=== PATIENT | female | born 1980 | race Caucasian/White ===

== ENCOUNTER 2018-04-07 20:04 | Emergency (ER) | payer OTHER ==
[~2018-04-07] VITALS: Ht 172.7 cm; Wt 71.7 kg
[~2018-04-07 20:04] MED LIST: ADVIL200 MG PO; CIPRO500 MG PO; FLEXERIL10 MG PO; LORAZEPAM1 MG PO; LORTAB 5-325 M1 EACH PO; NAPROSYN500 MG PO; NOHOMEMEDS; OLMESARTAN-HCT1 EACH PO; VITAMIN B122500 MCG PO
[2018-04-07] MEDS ORDERED: AUGMENTIN875 MG PO (20:54)
[2018-04-07 21:15] LABS: BASOPHIL (%) 0.3 % (0-1); EOSINOPHIL (%) 1.2 % (0-5); EOSINOPHIL COUNT 0.1 K/uL (0-0.3); HEMATOCRIT 42.9 % (36.0-46.0); HEMOGLOBIN 14.5 G/DL (11.9-15.5); IMMATURE GRANULOCYTE (%) 0.3 % (0.0-0.7); LYMPHOCYTE COUNT 2.2 K/uL (1.0-2.8); MCH 32.2 PG (29.0-34.0); MCHC 33.8 G/DL (30.0-36.0); MCV 95.1 FL (83-99); MONOCYTE (%) 6.7 % (3-12); MONOCYTE COUNT 0.8 K/uL (0-0.8); NEUTROPHIL (%) 72.5 % (45-76); NEUTROPHIL COUNT 8.4 K/uL (1.8-6.4); PLATELET COUNT 187 K/uL (156-360); RBC DIS.WIDTH-CV 13.1 % (11.8-14.6); RBC DIS.WIDTH-SD 45.9 % (39-53); RED BLOOD COUNT 4.51 M/uL (3.80-5.20); WHITE BLOOD COUNT 11.6 K/uL (4.1-10.2)
[2018-04-07 21:28] LABS: ALBUMIN 4.3 g/dL (3.2-4.8); CHLORIDE 105 mEq/L (99-109); POTASSIUM 3.4 mEq/L (3.7-5.4); SODIUM 137 mEq/L (136-147)
[2018-04-07 21:31] LABS: GLUCOSE 84 mg/dL (70-99); TOTAL PROTEIN 7.7 g/dL (6.4-8.3)
[2018-04-07 21:33] LABS: TOTAL BILIRUBIN 0.9 mg/dL (0.0-1.0)
[2018-04-07 21:34] LABS: ALKALINE PHOSPHATASE 51 IU/L (3-129)
[2018-04-07 21:35] LABS: CREATININE 0.8 mg/dL (0.6-1.3); GFR ESTIMATE (CALCULATED) > 59 mL/min/
[2018-04-07 21:36] LABS: AST (GOT) 18 IU/L (2-34); DIRECT BILIRUBIN 0.3 mg/dL (0.0-0.3); UREA NITROGEN (BUN) 15 mg/dL (9-23)
[2018-04-07 21:37] LABS: ALT (GPT) 12 IU/L (3-49)
[2018-04-07 21:58] VITALS: BP 147/108
[2018-04-08 10:49] LABS: HEPATITIS C ANTIBODY Nonreactive
[2018-04-08 10:50] LABS: HEPATITIS B SURFACE ANTIBODY REACTIVE; HIV-1/2 AB/AG COMBO Nonreactive
== END 2018-04-07 21:58 | disposition home or self-care (01) ==
LOC: EME 20:04 → RME 20:04
PROVIDERS: Nurse Practitioner Family
DX: S61.451A Open bite of right hand, initial encounter (principal); W50.3XXA Accidental bite by another person, initial encounter; Y99.0 Civilian activity done for income or pay
CPT/HCPCS: 80048; 80076; 85025; 86706; 86803; 87389; 99281; 99283